=== PATIENT | female | born 1980 | race Caucasian/White ===

== ENCOUNTER 2016-04-23 14:25 | Emergency (ER) | payer OTHER ==
[~2016-04-23] VITALS: Ht 165.1 cm; Wt 72.7 kg
[2016-04-23 14:28] VITALS: BP 157/106; PULSE 93; RESP 20; O2SAT 100
--- NOTE | 2016-04-23 15:10 | ED.REPORT ---
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 Associated symptoms include breaking routines, insomnia, sporadic behavior, excessive cleaning, scattered thoughts, compulsive activity, chain smoking, and agitation after drinking caffeine. Her sister also reports the patient experienced an episode of distress about protestant-related delusions. The patient's denies aggressive behavior or violence. The patient denies hallucinations, homicidal ideation, or suicidal ideation. She was recently living and sleeping for a short time in a home with a gas leak, and reports headaches during that time, but this has since resolved. The patient believes her manic episode began because she was drinking caffeine and eating candy to stay up late studying multiple nights in a row. She normally has a regular sleeping schedule. The patient has had 2-3 similar manic episodes over the past five years, but this particular episode is different in that the patient denies alcohol use for the past 15 months. She does take Vistaril regularly. Over the past 24 hours the patient has been taking un-prescribed Xanax (.25mg every 4-8hrs). Her last normal menstrual period was one week ago. She has an appointment with her [facility] mental [facility] next week and she sees a therapeutic counselor regularly. Nursing Notes Stated Complaint: MENTAL INSTABILITY Chief Complaint: Psychiatric Complaint Nursing Notes Reviewed: Yes Allergies: Coded Allergies: No Known Allergies (Unverified Allergy, Unknown, 04/23/16) Scheduled PRN Trazodone (Trazodone) 50 Mg Tablet 1-2 TABLET PO HS PRN PRN For Insomnia General Time Seen by MD: 15:09 Chief Complaint Manic Hx Obtained From: Patient, Spouse, Other family... (Sister) Arrived By: Walk-in Onset Occurred: 1 week ago Symptom Duration: Since onset Location: : Head Quality: Painful Severity: Current: No pain currently Severity: Maximum: Moderate Associated with: Reports: Agitation, Delusions, Denies: Fever, Violence Pertinent Negative: Relieved by nothing Related History: Reports: Decreased sleep Immunizations: Tetanus not up to date Recent Healthcare: No recent doctor visit Similar Sx Previous: Yes Risk-Psychiatric Illness Suicide Risk Stratification RF Statements: Risk factors N/A Past Medical History Past Medical History Notes: PCP: Ildefonso Hitchcock Past Medical History Psych admits for: 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 Past Surgical History Appendectomy Smoking History Current Every Day Smoker Social History Patient denies recent drug use 04/23/16 Alcohol Use: In recovery (15 months ago on 04/23/16) Drug Use: Cocaine, THC, Other (Ecstasy) Other Social History: Good social support, Ambulatory Status Independent Review of Systems Review of Systems Note: + Genesis, breaking routines, sporadic behavior, excessive cleaning, scattered thoughts, hyperactivity, chain smoking - Agression Constitutional: Denies: Fever Neurologic: Reports: Headache (Resolved) Psychiatric: Reports: Agitation (With caffeine), Delusional, Insomnia, Denies: Hallucinations, auditory, Hallucinations, visual, Homicidal ideation , Hostile, Suicidal ideation Complete sys rev & neg: except as marked. Physical Exam Initial Vital Signs Vital Signs (First) Date Time Temp Pulse Resp B/P Pulse Ox O2 Delivery O2 Flow Rate FiO2 04/23/16 14:28 37.4 93 20 157/106 100 Room Air Initial VS: Reviewed Head / Eyes: Atraumatic, Normocephalic ENT: Conjunctiva normal, No scleral icterus Skin: Warm, Dry General/Constitutional: Awake, Alert Neurologic: Oriented X3, Speech NL Psychiatric: Affect NL, Not suicidal, Not homicidal, No hallucinations Respiratory / Chest: Breath sounds NL, Breath sounds = bilat, No respiratory distress Cardiovascular: Heart rate NL, Regular rhythm, Heart sounds NL, No gallop, No murmurs, No rubs Interpretation & Diagnostics URINE DRUG SCREEN: + Benzodiazepines Otherwise negative URINE TEST: Negative Lab Results Interpretation Result Diagram: 04/23/16 1504 04/23/16 1504 Test 04/23/16 15:04 04/23/16 15:47 White Blood Count 6.7th/mm3 (3.8-10.1) Red Blood Count 4.18mil/mm3 (3.90-5.20) Hemoglobin 12.4g/dL (12.0-15.6) Hematocrit 36.3% (35.0-46.0) Mean Corpuscular Volume 86.8fL (81-100) Mean Corpuscular Hemoglobin 29.7pg (27.0-35.0) Mean Corpuscular Hemoglobin Concent 34.2% (32.0-37.0) Red Cell Distribution Width 12.7% (12.3-15.4) Platelet Count 311bil/L (150-400) Neutrophils (%) (Auto) 54.2% (40-74) Lymphocytes (%) (Auto) 33.0% (14-46) Monocytes (%) (Auto) 8.3% (4-12) Eosinophils (%) (Auto) 3.4% (0-5) Basophils (%) (Auto) 1.0% (0-3) Sodium Level 141mEq/L (134-144) Potassium Level 3.9mEq/L (3.5-5.2) Chloride Level 101mEq/L (97-108) Carbon Dioxide Level 26mmol/L (18-29) Blood Urea Nitrogen 10mg/dL (6-20) Creatinine 0.82mg/dL (0.57-1.00) Estimat Glomerular Filtration Rate 112mL/min (>59) Glucose Level 95mg/dL (60-99) Calcium Level 8.7mg/dL (8.5-10.1) Total Bilirubin 0.2mg/dL (0.0-1.2) Aspartate Amino Transf (AST/SGOT) 19U/L (0-50) Alanine Aminotransferase (ALT/SGPT) 13U/L (0-32) Alkaline Phosphatase 35U/L (25-150) Total Protein 6.3g/dL (6.4-8.4) Albumin 3.8g/dL (3.4-5.0) Thyroid Stimulating Hormone (TSH) 1.560uIU/mL (0.450-4.500) Hold Rudd Top Tube Received (Received) Alcohol, Quantitative < 10mg/dL (0-10) Hold Urine Received (Received) Re-Eval/Medical Decision Source of Hx: Old records Re-Evaluation/Progress : Time of Eval: 18:03 Patient Status: Condition improved Re-Evaluation/Progress Note: Patient was seen by the child welfare social worker. Discussed with patient lab results, diagnosis, and plan for discharge. Follow-up and return to the ER instructions given. Patient agrees with plan for care and all questions were addressed. Counseled Regarding: Diagnosis, Lab results, Need for follow-up, When/why to return to ED Discharge & Departure Impression: Primary Impression: Manic episode )( Condition at Discharge: No danger to self, No danger to others, No suicidal ideation, No homicidal ideation Disposition: Home Discharge Condition All VS Reviewed: Yes Condition: Stable Additional Instructions: Use trazodone as prescribed for sleep. Avoid the use of caffeine. Follow up for psychiatric care soon. Return to ED if getting worse Referrals: NOPCP (PCP) Scribe Attestation Portions of this note were transcribed by Shannon Gale. I, Dr. Venegas, personally performed the history, physical exam, and medical decision-making; I reviewed and confirmed the accuracy of the information in the transcribed note. Signed by: Tanesha Da Silva, 04/23/2016, 18:15 Taiwo Venegas MD Apr 23, 2016 15:10 SHANNON GALE Apr 23, 2016 15:41
[2016-04-23 15:14] LABS: EOSINOPHILS % (AUTO) 3.4 % (0-5); MONOCYTES % (AUTO) 8.3 % (4-12); Mean Corpuscular Hemoglobin 29.7 pg (27.0-35.0); Mean Corpuscular Volume 86.8 fL (81-100); NEUTROPHILS % (AUTO) 54.2 % (40-74); Platelet Count 311 bil/L (150-400)
[2016-04-23] MEDS ORDERED: TRAZ-115 PO (18:09)
[2016-04-23 18:14] VITALS: BP 136/87; PULSE 102; RESP 20; O2SAT 98
== END 2016-04-23 18:15 | disposition home or self-care (01) ==
LOC: SED 14:25
DX: F30.9 Manic episode, unspecified (principal); F31.9 Bipolar disorder, unspecified; F17.200 Nicotine dependence, unspecified, uncomplicated
CPT/HCPCS: 36415; 80053; 81025; 84443; 85025; 99284; G0480